=== PATIENT | female | born 1970 | race Caucasian/White ===

== ENCOUNTER 2017-12-28 11:02 | Emergency (ER) | payer OTHER ==
[2017-12-28 11:08] VITALS: BP 113/68; PULSE 65; TEMP 97.8; BMI 23.7
--- NOTE | 2017-12-28 11:32 | PDOC ---
History of Present Illness - General Chief Complaint: Pain, Acute Stated Complaint: LOW BACK/ LEFT LEG PAIN Time Seen by Provider: 12/28/17 11:08 - History of Present Illness Initial Comments: 12/28/17 11:27 47yo F with no significant past medical history presents emergency Department with 3 days of left lower back pain after gardening. Patient reports pain is worse over the left lumbar and sacroiliac spine and radiates down her left leg. She's never had similar pain in the past. She has tried Aleve and Motrin for pain with minimal relief. Denies any weakness or numbness in her lower extremities. Denies any urinary or stool retention or incontinence. Denies fevers or chills. Denies any IV drug use. Patient had an appointment with her primary doctor at 11:30 today but states the pain was too severe and her neighbor brought her to the emergency department for further evaluation. Patient has Mirena IUD in. Denies falls or trauma. Denies any chest pain, shortness of breath, abdominal pain, nausea, vomiting, diarrhea, rashes. Past History - Past Medical History Allergies/Adverse Reactions: Allergies Allergy/AdvReac Type Severity Reaction Status Date / Time No Known Allergies Allergy Verified 12/28/17 11:03 Home Medications: Ambulatory Orders NK [No Known Home Medication] 12/28/17 COPD: No - Suicide/Smoking/Psychosocial Hx Smoking History: Current some day smoker Number of Cigarettes Smoked Daily: 1 Information on smoking cessation initiated: Yes 'Breaking Loose' booklet given: 12/28/17 Hx Alcohol Use: Yes Drug/Substance Use Hx: No Substance Use Type: Alcohol Review of Systems - Review of Systems Comments:: 12/28/17 11:29 GENERAL/CONSTITUTIONAL: No fever or chills. No weakness. HEAD, EYES, EARS, NOSE AND THROAT: No change in vision. No ear pain or discharge. No sore throat. GASTROINTESTINAL: No nausea, vomiting, diarrhea or constipation. GENITOURINARY: No dysuria, frequency, or change in urination. CARDIOVASCULAR: No chest pain or shortness of breath. RESPIRATORY: No cough, wheezing, or hemoptysis. MUSCULOSKELETAL: No joint or muscle swelling or pain. No neck pain. +back pain SKIN: No rash NEUROLOGIC: No headache, vertigo, loss of consciousness, or change in strength/ sensation. ENDOCRINE: No increased thirst. No abnormal weight change. HEMATOLOGIC/LYMPHATIC: No anemia, easy bleeding, or history of blood clots. ALLERGIC/IMMUNOLOGIC: No hives or skin allergy. *Physical Exam - Vital Signs Last Vital Signs Temp Pulse Resp BP Pulse Ox 97.8 F 65 15 113/68 100 12/28/17 11:03 12/28/17 11:03 12/28/17 11:03 12/28/17 11:03 12/28/17 11:03 - Physical Exam Comments: 12/28/17 11:29 GENERAL: Awake, alert, and fully oriented, in no acute distress HEAD: No signs of trauma EYES: PERRLA, EOMI, sclera anicteric, conjunctiva clear ENT: Auricles normal inspection, hearing grossly normal, nares patent, oropharynx clear without exudates. Moist mucosa NECK: Normal ROM, supple, no lymphadenopathy, JVD, or masses LUNGS: Breath sounds equal, clear to auscultation bilaterally. No wheezes, and no crackles HEART: Regular rate and rhythm, normal S1 and S2, no murmurs, rubs or gallops ABDOMEN: Soft, nontender, normoactive bowel sounds. No guarding, no rebound. No masses EXTREMITIES: Normal range of motion, no edema. No clubbing or cyanosis. No cords, erythema, or tenderness BACK: no midline cervical, thoracic, lumbar ttp. +L paraspinal lumbar and sacroiliac ttp NEUROLOGICAL: Normal speech, cranial nerves intact, negative pronator drift, 5/ 5 strength in all 4 extremities, normal sensation to light touch in all 4 extremities, normal cerebellar exam, normal gait, normal reflexes and tone SKIN: Warm, Dry, normal turgor, no rashes or lesions noted. Medical Decision Making - Medical Decision Making 12/28/17 11:31 47yo F presents to the ED with L lower back pain radiating down the L leg consistent with sciatica. Pt has no red flag sxs concerning for cauda equina. Will check UPT, UA, treat with toradol/valium and reassess. 12/28/17 12:32 UA with 2+ blood. Pt stating pain is better when she stands. such, will obtain CTAP to eval for renal colic 12/28/17 13:09 CTAP with L 2x2cm ovarian cyst. Likely sciatic pain as well as ovarian cyst. Pt informed of results, recommended f/u with [facility] and ortho. Pt feels moderately better with toradol and valium. Will prescribe naproxen and valium PRN. Pt requests DC. I discussed the physical exam findings, ancillary test results and final diagnoses with the patient. I answered all of the patient's questions. The patient was satisfied with the care received and felt comfortable with the discharge plan and treatment plan. The patient will call their primary care physician within 24 hours to arrange follow-up and will return to the Emergency Department with any new, persistent or worsening symptoms. *DC/Admit/Observation/Transfer Diagnosis at time of Disposition: Sciatica, Ovarian cyst - Discharge Dispostion Disposition: HOME Condition at time of disposition: Stable Decision to Admit order: No - Referrals Referrals: Calos Sumner MD [Staff Physician] - - Patient Instructions Printed Discharge Instructions: DI for Low Back Pain, DI for Ovarian Cyst Additional Instructions: Follow up with your [facility] doctor as discussed for your ovarian cyst within 1 week. Follow up with Dr. Sumner (referral provided) within 1 week for your back pain. Return to the emergency department if you have any new, worsening, or concerning symptoms. - Post Discharge Activity - Attestations Physician Attestion: 12/28/17 13:14 I, Dr. Kristine Steven MD, attest that this document has been prepared under my direction and personally reviewed by me in its entirety. I further attest, that it accurately reflects all work, treatment, procedures and medical decision -making performed by me.
[2017-12-28 11:43] LABS: PH,URINE 5.5 (4.5-8); URINE APPEARANCE Clear; URINE BILIRUBIN Negative (NEGATIVE); URINE GLUCOSE (UA) Negative (NEGATIVE); URINE KETONE Negative (NEGATIVE); URINE LEUK ESTERASE Negative (NEGATIVE); URINE NITRITE Negative (NEGATIVE); URINE PROTEIN Negative (NEGATIVE); URINE UROBILINOGEN 0.2 (0.2-1.0)
[2017-12-28 11:50] LABS: HCG,QUALITATIVE URINE Negative; URINE BLOOD 2+ (NEGATIVE); URINE COLOR YELLOW
[2017-12-28] MEDS ORDERED: KETOROLAC TROMETHAMINE 15 MG/ML VIAL IM ONE (11:57)
[2017-12-28] MEDS ORDERED: diazePAM 5 MG TABLET PO ONE (11:57)
[2017-12-28] MEDS ORDERED: diazePAM 5 MG TABLET ONE (11:58)
[2017-12-28] MEDS ORDERED: KETOROLAC TROMETHAMINE 30 MG/1 ML VIAL ONE (11:59)
== END 2017-12-28 13:23 | disposition home or self-care (01) ==
LOC: FER 11:02
PROC: 3E0233Z Introduction of Anti-inflammatory into Muscle, Percutaneous Approach (ICD-10-PCS; principal; 2017-12-28)
DX: N83.209 Unspecified ovarian cyst, unspecified side (principal); M54.30 Sciatica, unspecified side; F17.210 Nicotine dependence, cigarettes, uncomplicated
CPT/HCPCS: 74176-TC; 81003; 81015; 84703; 99282-25